=== PATIENT | male | born 1960 | race Caucasian/White ===

== ENCOUNTER → 2017-10-04 | Outpatient (CLI) | payer MEDICARE ==
[2017-10-04 08:27] LABS: Basophils # (A) 0.1 k/uL (0-0.2); Basophils % (A) 1 %; Eosinophils # (A) 0.4 k/uL (0-0.7); Eosinophils % (A) 5 %; HCT 48.6 % (39.0-53.0); HGB 15.5 gm/dL (13.0-17.5); Lymphocytes # (A) 2.9 k/uL (1.0-4.8); Lymphocytes % (A) 41 %; MCH 33.1 pg (25.0-35.0); MCHC 31.9 g/dL (31.0-37.0); MCV 103.8 fL (80.0-100.0); Macrocytosis Slight; Mean Platelet Volume 7.7; Monocytes # (A) 0.4 k/uL (0-1.0); Monocytes % (A) 6 %; Neutrophils # (A) 3.2 k/uL (1.3-7.7); Neutrophils % (A) 45 %; Platelet Count 228 k/uL (150-450); RBC 4.68 m/uL (4.30-5.90); RDW 12.5 % (11.5-15.5); WBC 7.2 k/uL (3.8-10.6)
[2017-10-04 10:09] LABS: ALT 73 U/L (21-72); AST 34 U/L (17-59); Albumin 3.8 g/dL (3.5-5.0); Alkaline Phosphatase 52 U/L (38-126); Anion Gap 9 mmol/L; Blood Urea Nitrogen 15 mg/dL (9-20); Calcium 9.6 mg/dL (8.4-10.2); Carbon Dioxide 28 mmol/L (22-30); Chloride 108 mmol/L (98-107); Glucose 101 mg/dL (74-99); Lithium 0.8 mmol/L; Potassium 4.8 mmol/L (3.5-5.1); Sodium 145 mmol/L (137-145); Total Bilirubin 0.2 mg/dL (0.2-1.3); Total Protein 6.5 g/dL (6.3-8.2)
[2017-10-04 10:14] LABS: Valproic Acid (Depakene) 47.3 ug/mL
[2017-10-04 10:24] LABS: T4, Free (Free Thyroxine) 0.66 ng/dL (0.78-2.19)
== END | disposition home or self-care (01) ==
LOC: LABWHC1 07:47
PROVIDERS: ATTEND Psychiatry & Neurology Psychiatry
DX: F31.9 Bipolar disorder, unspecified (principal)
CPT/HCPCS: 36415; 80053; 80164; 80178; 84439; 84443; 84479; 85025

== ENCOUNTER → 2017-11-15 | Outpatient (CLI) | payer MEDICARE | END | disposition home or self-care (01) | LOC: LABWHC1 08:48 | PROVIDERS: ATTEND Psychiatry & Neurology Psychiatry | DX: F31.9 Bipolar disorder, unspecified (principal) | CPT/HCPCS: 36415; 80164 ==

== ENCOUNTER → 2018-02-07 | Outpatient (CLI) | payer MEDICARE | END | disposition home or self-care (01) | LOC: LABWHC1 08:55 | PROVIDERS: ATTEND Psychiatry & Neurology Psychiatry | DX: F31.9 Bipolar disorder, unspecified (principal) | CPT/HCPCS: 36415; 80164 ==

== ENCOUNTER → 2018-02-08 | Outpatient (CLI) | payer MEDICARE | END | disposition home or self-care (01) | LOC: LABWHC1 08:39 | PROVIDERS: ATTEND Psychiatry & Neurology Psychiatry | DX: F31.70 Bipolar disorder, currently in remission, most recent episode unspecified (principal) | CPT/HCPCS: 36415; 80178 ==

== ENCOUNTER → 2019-04-16 | Outpatient (CLI) | payer MEDICARE ==
[2019-04-17 01:16] LABS: Valproic Acid (Depakene) 60.9 ug/mL (50.0-100.0)
[2019-04-17 02:27] LABS: Lithium 0.6 mmol/L (1.0-1.2)
== END | disposition home or self-care (01) ==
LOC: LABWHC1 08:24
PROVIDERS: ATTEND Specialist
DX: F31.70 Bipolar disorder, currently in remission, most recent episode unspecified (principal)
CPT/HCPCS: 36415; 80164; 80178

== ENCOUNTER → 2019-07-24 | Outpatient (CLI) | payer MEDICARE ==
[2019-07-24 15:21] LABS: Basophils # (A) 0.1 k/uL (0-0.2); Basophils % (A) 1 %; Eosinophils # (A) 0.2 k/uL (0-0.7); Eosinophils % (A) 4 %; HGB 15.4 gm/dL (13.0-17.5); Lymphocytes # (A) 1.8 k/uL (1.0-4.8); Lymphocytes % (A) 36 %; MCH 34.2 pg (25.0-35.0); MCHC 32.8 g/dL (31.0-37.0); MCV 104.3 fL (80.0-100.0); Macrocytosis Slight; Mean Platelet Volume 6.5; Monocytes # (A) 0.3 k/uL (0-1.0); Monocytes % (A) 6 %; Neutrophils # (A) 2.6 k/uL (1.3-7.7); Neutrophils % (A) 50 %; Platelet Count 192 k/uL (150-450); RDW 11.6 % (11.5-15.5); WBC 5.2 k/uL (3.8-10.6)
[2019-07-24 15:46] LABS: Appearance,Urine Clear (Clear); Bilirubin,Urine Negative (Negative); Blood,Urine Negative (Negative); Color,Urine Yellow; Glucose,Urine (UA) Negative (Negative); Ketones,Urine Negative (Negative); Leukocyte Esterase,Urine Negative (Negative); Nitrite,Urine Negative (Negative); PH, Urine 6.5 (5.0-8.0); Protein,Urine Negative (Negative); Specific Gravity,Urine 1.017 (1.001-1.035); Urobilinogen,Urine <2.0 mg/dL (<2.0)
[2019-07-24 21:00] LABS: African American GFR (CKD) 108.7 (60.0-200.0); Albumin 4.1 g/dL (3.80-4.90); Albumin/Globulin Ratio 2.41 (1.60-3.17); Anion Gap 6.3 mmol/L (4.00-12.00); BUN/Creat Ratio 18.89 Ratio (12.00-20.00); Calcium 9.3 mg/dL (8.7-10.3); Carbon Dioxide 24.7 mmol/L (21.6-31.8); Chol/HDL Ratio 3.29; Globulin 1.7 g/dL (1.6-3.3); Lithium 0.4 mmol/L (0.5-1.2); Potassium 5.3 mmol/L (3.5-5.5); T4, Free (Free Thyroxine) 0.9 ng/dL (0.80-1.80); Total Bilirubin 0.5 mg/dL (0.3-1.2); Total Protein 5.8 g/dL (6.2-8.2)
== END ==
LOC: LABWHC1 14:14
PROVIDERS: ATTEND Psychiatry & Neurology Psychiatry
DX: F31.70 Bipolar disorder, currently in remission, most recent episode unspecified (principal)
CPT/HCPCS: 36415; 80053; 80061; 80164; 80178; 81003; 82306; 84439; 84443; 85025

== ENCOUNTER → 2019-12-05 | Outpatient (CLI) | payer MEDICARE ==
[2019-12-05 13:42] LABS: Basophils % (A) 0 %; Eosinophils # (A) 0.2 k/uL (0-0.7); Eosinophils % (A) 4 %; HCT 45.5 % (39.0-53.0); HGB 14.9 gm/dL (13.0-17.5); Lymphocytes # (A) 2.1 k/uL (1.0-4.8); Lymphocytes % (A) 32 %; MCH 34.1 pg (25.0-35.0); MCHC 32.8 g/dL (31.0-37.0); MCV 104.2 fL (80.0-100.0); Macrocytosis Slight; Mean Platelet Volume 7.6; Monocytes # (A) 0.4 k/uL (0-1.0); Monocytes % (A) 6 %; Neutrophils # (A) 3.6 k/uL (1.3-7.7); Neutrophils % (A) 56 %; Platelet Count 234 k/uL (150-450); RBC 4.37 m/uL (4.30-5.90); RDW 11.9 % (11.5-15.5); WBC 6.5 k/uL (3.8-10.6)
[2019-12-05 19:21] LABS: T4, Free (Free Thyroxine) 1.2 ng/dL (0.80-1.80)
[2019-12-05 20:14] LABS: Valproic Acid (Depakene) 103.3 ug/mL (50.0-100.0)
[2019-12-05 20:37] LABS: African American GFR (CKD) 85.3 (60.0-200.0); Albumin/Globulin Ratio 2.11 (1.60-3.17); Anion Gap 6.7 mmol/L (4.00-12.00); BUN/Creat Ratio 12.73 Ratio (12.00-20.00); Bilirubin, Conjugated 0.2 mg/dL (0.20-0.40); Bilirubin,Unconjugated 0.2 mg/dL; Calcium 9.3 mg/dL (8.7-10.3); Carbon Dioxide 25.3 mmol/L (21.6-31.8); Globulin 1.9 g/dL (1.6-3.3); Lithium 0.7 mmol/L (0.5-1.2); Non-African American GFR(CKD) 73.6 (60.0-200.0); Potassium 5.1 mmol/L (3.5-5.5); Total Bilirubin 0.4 mg/dL (0.3-1.2); Total Protein 5.9 g/dL (6.2-8.2)
== END | disposition home or self-care (01) ==
LOC: LABWHC1 12:52
PROVIDERS: ATTEND Clinical Nurse Specialist Psychiatric/Mental Health
DX: F31.70 Bipolar disorder, currently in remission, most recent episode unspecified (principal)
CPT/HCPCS: 36415; 80053; 80164; 80178; 82150; 82248; 83690; 84439; 84443; 84479; 85025

== ENCOUNTER → 2021-08-11 | Outpatient (CLI) | payer MEDICARE ==
[2021-08-12 00:14] LABS: Valproic Acid (Depakene) 73.3 ug/mL (50.0-100.0)
[2021-08-12 00:20] LABS: Lithium 0.9 mmol/L (0.50-1.20)
== END | disposition home or self-care (01) ==
LOC: LABWHC1 15:10
PROVIDERS: ATTEND Physician Assistant
DX: F31.70 Bipolar disorder, currently in remission, most recent episode unspecified (principal)
CPT/HCPCS: 36415; 80164; 80178

== ENCOUNTER → 2022-06-11 | Outpatient (CLI) | payer MEDICARE ==
--- NOTE | 2022-06-11 18:13 | XR ---
EXAMINATION TYPE: XR chest 2V DATE OF EXAM: 06/11/2022 COMPARISON: None HISTORY: 62-year-old male R05.8, there is a slight cough TECHNIQUE: Frontal and lateral views FINDINGS: The cardiomediastinal silhouette, aorta, and pulmonary vasculature are within normal limits. Lungs an d pleural spaces are clear. IMPRESSION: No acute cardiopulmonary process.
== END | disposition home or self-care (01) ==
LOC: RADXRMAIN 15:26
PROVIDERS: ATTEND Family Medicine
DX: R05.8 Other specified cough (principal)
CPT/HCPCS: 71046

== ENCOUNTER 2023-11-10 09:58 | Day surgery (SDC) | payer MEDICARE ==
--- NOTE | 2023-11-10 07:38 | P.GSHP ---
History of Present Illness H&P Date: 11/10/23 CHIEF COMPLAINT: GI bleed HISTORY OF PRESENT ILLNESS: The patient is a 63-year-old male who presents with GI bleed. Upper and lower endoscopy were offered for further evaluation and management. PAST MEDICAL HISTORY: Please see list. PAST SURGICAL HISTORY: Please see list. MEDICATIONS: Please see list. ALLERGIES: Please see list. SOCIAL HISTORY: No illicit drug use FAMILY HISTORY: No reports of Crohn disease or ulcerative colitis. REVIEW OF ORGAN SYSTEMS: CONSTITUTIONAL: No reports of fevers or chills. GI: Denies any blood in stools or constipation. PHYSICAL EXAM: VITAL SIGNS: Stable GENERAL: Well-developed pleasant in no acute distress. HEENT: No scleral icterus. Extraocular movements grossly intact. Moist buccal mucosa. NECK: Supple without lymphadenopathy. CHEST: Unlabored respirations. Equal bilateral excursions. CARDIOVASCULAR: Regular rate and rhythm. Distal 2+ pulses. ABDOMEN: Soft, nondistended. MUSCULOSKELETAL: No clubbing, cyanosis, or edema. ASSESSMENT: 1. GI bleed GI bleed PLAN: 1. Recommend proceeding with an upper and lower endoscopy Past Medical History Past Medical History: Thyroid Disorder Additional Past Medical History / Comment(s): hypothyroidism, kinetic tremors - arms History of Any Multi-Drug Resistant Organisms: None Reported Additional Past Surgical History / Comment(s): colonoscopy, pilonidal cyst remov al Past Anesthesia/Blood Transfusion Reactions: No Reported Reaction Smoking Status: Current some day smoker Medications and Allergies Home Medications Medication Instructions Recorded Confirmed Type Atorvastatin [Lipitor] 20 mg PO HS 11/08/23 11/08/23 History Citalopram Hydrobromide 20 mg PO QAM 11/08/23 11/08/23 History [Citalopram HBr] Divalproex ER [Depakote ER] 1,250 mg PO HS 11/08/23 11/08/23 History Levothyroxine Sodium 150 mcg PO QAM 11/08/23 11/08/23 History [place] Carbonate [Lithobid] 300 mg PO BID 11/08/23 11/08/23 History Multivitamin [Multivitamins Adult 1 each PO DAILY 11/08/23 11/08/23 History Gummies] QUEtiapine [SEROquel] 50 mg PO HS 11/08/23 11/08/23 History Allergies Allergy/AdvReac Type Severity Reaction Status Date / Time Penicillins Allergy Rash/Hives Verified 11/08/23 11:08
[~2023-11-10 09:58] MED LIST: LIDOCAINE 1% (10MG/ML) FOR IV START INTRADERMA PRN
[2023-11-10] MEDS: LACTATED RINGERS 1,000 ML IV SCH (10:27)
[2023-11-10 10:30] VITALS: RESP 16; TEMP 97.1
[2023-11-10] MEDS ORDERED: PROPOFOL 10 MG/ML 20 ML VIAL IV ONE (10:56)
[2023-11-10] MEDS ORDERED: LIDOCAINE 2% (PF) 20 MG/ML 5 ML VIAL ONE (10:56)
--- NOTE | 2023-11-10 11:48 | P.PCN ---
Date of Procedure: 11/10/23 Description of Procedure: PREOPERATIVE DIAGNOSIS: Colonoscopy screening POSTOPERATIVE DIAGNOSIS: Colonoscopy screening. Diverticulosis, scattered. OPERATION: Colonoscopy to the cecum, ileocecal valve and appendiceal orifice. SURGEON: Montse Bowling MD. ANESTHESIA: MAC. INDICATIONS: The patient is a 63-year-old female who presents for colonoscopy screening. Last colonoscopy over 5 years ago. Benefits and risks were described and informed consent was obtained. DESCRIPTION OF PROCEDURE: The patient had undergone Sutab prep. The patient had been brought into the operating room and laid in the left lateral decubitus position. After adequate intravenous sedation, the rectum was examined with 2% lidocaine jelly. Prostate unremarkable. External hemorrhoids were encountered. The rectal tone was within normal limits. No lesions were palpated in the rectal vault. An Olympus colonoscope was advanced until the cecum, ileocecal valve and appendiceal orifice were clearly viewed. The prep was good. Scattered diverticulosis was encountered. No colonic polyps were found. No evidence of focal colitis was found. Retroflexion of the scope demonstrated grade 2 internal hemorrhoids without active bleeding or inflammation. The colon was desufflated. The patient had tolerated the procedure well. Withdrawal time was over 6 minutes. FINDINGS: Aronchick preparation quality scale 1= (1-5) Internal hemorrhoids, grade 2 External prolapsed hemorrhoids, grade 2. No arteriovenous malformations. No adenomatous polyps. No focal colitis. RECOMMENDATIONS: Lower endoscopy in 5 years, 2028
--- NOTE | 2023-11-10 11:50 | P.PCN ---
Date of Procedure: 11/10/23 Description of Procedure: PREOPERATIVE DIAGNOSIS: Gastrointestinal bleeding History of gastric ulcer POSTOPERATIVE DIAGNOSIS: Chronic gastric ulcer Gastritis of bleeding OPERATION: Esophagogastroduodenoscopy with biopsies along esophagus, antrum and duodenum SURGEON: Montse Bowling MD ANESTHESIA: MAC. INDICATIONS: The patient is a 63-year-old female who presents with reflux disease. Benefits and risks of the procedure were described. Informed consent was obtained. DESCRIPTION: The patient was brought into the endoscopy suite and laid in the left lateral decubitus position. An Olympus gastroscope was passed along the posterior oropharynx down to the distal esophagus where the squamocolumnar junction was encountered at 40 cm from the incisors. The stomach was entered and no bile reflux was found. Additional findings are listed below. Biopsies with cold forceps were obtained of the antrum. The first through third portion of the duodenum was examined. Retroflexion of the scope confirmed Hill grade 2 lower esophageal valve. The squamocolumnar junction demonstrated LA grade B erosive esophagitis. The stomach was desufflated. The patient tolerated the procedure well. FINDINGS: Squamocolumnar junction 40 cm from the incisors. Diaphragmatic hiatus at 40 cm. Hill grade 4 lower esophageal valve. LA grade B erosive esophagitis. Biopsies obtained Biopsies obtained of the duodenum. Chronic gastritis with bleeding and with biopsies obtained. Chronic gastric ulcer, 5 mm no bleeding RECOMMENDATIONS: Omeprazole 40 mg daily for 2 weeks Plan - Discharge Summary Discharge Rx Participant: Yes New Discharge Prescriptions: New RX: Omeprazole [PriLOSEC] 40 mg PO DAILY #14 cap Continue RX: Multivitamin [Multivitamins Adult Gummies] 1 each PO DAILY RX: [place] Carbonate [Lithobid] 300 mg PO BID RX: Citalopram Hydrobromide [Citalopram HBr] 20 mg PO QAM RX: Divalproex ER [Depakote ER] 1,250 mg PO HS RX: Acetaminophen [Tylenol] 650 mg PO RX: Levothyroxine Sodium 150 mcg PO QAM RX: QUEtiapine [SEROquel] 50 mg PO HS RX: Atorvastatin [Lipitor] 20 mg PO HS Discharge Medication List RX: Atorvastatin [Lipitor] 20 mg PO HS 11/08/23 [History] RX: Citalopram Hydrobromide [Citalopram HBr] 20 mg PO QAM 11/08/23 [History] RX: Divalproex ER [Depakote ER] 1,250 mg PO HS 11/08/23 [History] RX: Levothyroxine Sodium 150 mcg PO QAM 11/08/23 [History] RX: [place] Carbonate [Lithobid] 300 mg PO BID 11/08/23 [History] RX: Multivitamin [Multivitamins Adult Gummies] 1 each PO DAILY 11/08/23 [History] RX: QUEtiapine [SEROquel] 50 mg PO HS 11/08/23 [History] RX: Acetaminophen [Tylenol] 650 mg PO 11/10/23 [History] RX: Omeprazole [PriLOSEC] 40 mg PO DAILY #14 cap 11/10/23 [Rx] Follow up Appointment(s)/Referral(s): Montse Bowling MD [STAFF PHYSICIAN] - 12/20/23 4:45 pm Patient Instructions/Handouts: Peptic Ulcer (GEN), Diverticulosis (DC), Diverticulosis Diet (GEN) Activity/Diet/Wound Care/Special Instructions: Repeat colonoscopy in 5 years, 2028 Discharge Disposition: HOME SELF-CARE
[2023-11-10 12:02] VITALS: BP 127/63; PULSE 72
== END 2023-11-10 12:25 | disposition home or self-care (01) ==
LOC: ORWHC2ENDO 09:58
PROVIDERS: ATTEND Surgery Plastic and Reconstructive Surgery
DX: Z12.11 Encounter for screening for malignant neoplasm of colon (principal); K29.50 Unspecified chronic gastritis without bleeding; K21.00 Gastro-esophageal reflux disease with esophagitis, without bleeding; K25.4 Chronic or unspecified gastric ulcer with hemorrhage; K21.9 Gastro-esophageal reflux disease without esophagitis; K57.30 Diverticulosis of large intestine without perforation or abscess without bleeding; E03.9 Hypothyroidism, unspecified; F17.200 Nicotine dependence, unspecified, uncomplicated; Z79.890 Hormone replacement therapy; Z79.899 Other long term (current) drug therapy; Z88.0 Allergy status to penicillin
CPT/HCPCS: 88305; 45378; 43239; J2704; J2001

== ENCOUNTER 2024-06-26 13:06 | Emergency (ER) | payer MEDICARE ==
[2024-06-26 13:13] VITALS: RESP 18
--- NOTE | 2024-06-26 13:29 | ED ---
Lower Extremity Injury HPI - General Chief Complaint: Extremity Injury, Lower Stated Complaint: L Foot Pain Time Seen by Provider: 06/26/24 13:21 Source: patient, RN notes reviewed Mode of arrival: ambulatory Limitations: no limitations - History of Present Illness Initial Comments: This is a 64-year-old male presents emergency department chief complaint of left foot pain. Patient states that his left foot has been painful over the past approximately 36 hours. He noticed that there was redness and swelling to the great toe at the first knuckle. Patient denies any known traumas or injuries to the left foot. He endorses pain with ambulation. He denies fevers, chills, nausea, vomiting, weakness. Denies history of gout. - Related Data Home Medications Medication Instructions Recorded Confirmed Atorvastatin [Lipitor] 20 mg PO HS 11/08/23 11/10/23 Citalopram Hydrobromide 20 mg PO QAM 11/08/23 11/10/23 [Citalopram HBr] Divalproex ER [Depakote ER] 1,250 mg PO HS 11/08/23 11/10/23 Levothyroxine Sodium 150 mcg PO QAM 11/08/23 11/10/23 [place] Carbonate [Lithobid] 300 mg PO BID 11/08/23 11/10/23 Multivitamin [Multivitamins Adult 1 each PO DAILY 11/08/23 11/08/23 Gummies] QUEtiapine [SEROquel] 50 mg PO HS 11/08/23 11/10/23 Acetaminophen [Tylenol] 650 mg PO 11/10/23 Previous Rx's Medication Instructions Recorded Omeprazole [PriLOSEC] 40 mg PO DAILY #14 cap 11/10/23 Cephalexin [Keflex] 500 mg PO Q6HR #40 cap 06/26/24 Sulfamethox-Tmp 800-160Mg [Bactrim 1 each PO Q12HR #20 tab 06/26/24 Ds] Allergies Allergy/AdvReac Type Severity Reaction Status Date / Time Penicillins Allergy Rash/Hives Verified 06/26/24 13:13 Review of Systems ROS Statement: Those systems with pertinent positive or pertinent negative responses have been documented in the HPI. ROS Other: All systems not noted in ROS Statement are negative. Past Medical History Past Medical History: Thyroid Disorder Additional Past Medical History / Comment(s): hypothyroidism, kinetic tremors - arms History of Any Multi-Drug Resistant Organisms: None Reported Additional Past Surgical History / Comment(s): colonoscopy, pilonidal cyst removal Past Anesthesia/Blood Transfusion Reactions: No Reported Reaction Past Psychological History: Anxiety, Bipolar, Depression Smoking Status: Current every day smoker Past Alcohol Use History: Daily General Exam Limitations: no limitations General appearance: alert, in no apparent distress Eye exam: Present: normal appearance, PERRL, EOMI. Absent: scleral icterus, conjunctival injection, periorbital swelling ENT exam: Present: normal exam, mucous membranes moist Neck exam: Present: normal inspection. Absent: tenderness, meningismus, lymphadenopathy Respiratory exam: Present: normal lung sounds bilaterally. Absent: respiratory distress, wheezes, rales, rhonchi, stridor Cardiovascular Exam: Present: regular rate, normal rhythm, normal heart sounds. Absent: systolic murmur, diastolic murmur, rubs, gallop, clicks GI/Abdominal exam: Present: soft, normal bowel sounds. Absent: distended, tenderness, guarding, rebound, rigid Left Foot/Toe exam: Present: full ROM, tenderness, swelling, erythema. Absent: abrasion, laceration, ecchymosis, deformity, crepitus, dislocation Neurovascular tendon exam: Present: no vascular compromise. Absent: pulse deficit Gait: observed and normal Skin exam: Present: warm, dry, intact, normal color. Absent: rash Course Vital Signs 06/26/24 06/26/24 13:09 14:32 Temperature 97.6 F 99 F Pulse Rate 77 67 Respiratory 18 18 Rate Blood Pressure 155/75 121/73 O2 Sat by Pulse 98 99 Oximetry Medical Decision Making - Medical Decision Making Was pt. sent in by a medical professional or institution (, PA, TOLL TEST DESK WORKER, urgent care, hospital, or [facility]...) When possible be specific @ -No Did you speak to anyone other than the patient for history (EMS, parent, family, police, friend...)? What history was obtained from this source @ -No Did you review nursing and triage notes (agree or disagree)? Why? @ -I reviewed and agree with nursing and triage notes Were old charts reviewed (outside hosp., previous admission, EMS record, old EKG, old radiological studies, urgent care reports/EKG's, [facility] records)? Report findings @ -No old charts were reviewed Differential Diagnosis (chest pain, altered mental status, abdominal pain women, abdominal pain men, vaginal bleeding, weakness, fever, dyspnea, syncope, headache, dizziness, GI bleed, back pain, seizure, CVA, palpatations, mental health, musculoskeletal)? @ -Differential Musculoskeletal Muscular strain, contusion, ligament sprain, fracture, arthritis, septic arthritis, bursitis, cellulitis, muscle spasm, nerve compression, DVT, arterial occlusion, herpes zoster, electrolyte abnormality, tumor.... This is not meant to be in all inclusive list EKG interpreted by me (3pts min.). @ -None X-rays interpreted by me (1pt min.). @ -Area of the left foot is negative for acute osseous abnormality CT interpreted by me (1pt min.). @ -None done U/S interpreted by me (1pt. min.). @ -None done What testing was considered but not performed or refused? (CT, X-rays, U/S, labs )? Why? @ -Laboratory studies were considered but deferred at this time. There is minimal clinical concern for systemic infection as there is a localized area of erythema and mild soft tissue swelling. Patient is not expressing symptoms of fevers, chills, nausea, vomiting. Additionally he is afebrile nontachycardic. Patient is in agreement with deferring laboratory studies at this time as well. What meds were considered but not given or refused? Why? @ -None Did you discuss the management of the patient with other professionals (professionals i.e. , PA, TOLL TEST DESK WORKER, lab, RT, psych nurse, social media campaign manager, territory business manager, teacher, chief compliance officer, caser up)? Give summary @ -No Was smoking cessation discussed for >3mins.? @ -No Was critical care preformed (if so, how long)? @ -No Were there social determinants of health that impacted care today? How? (Homelessness, low income, unemployed, alcoholism, drug addiction, transportation, low edu. Level, literacy, decrease access to med. care, care home, rehab)? @ -No Was there de-escalation of care discussed even if they declined (Discuss DNR or withdrawal of care, Hospice)? DNR status @ -No What co-morbidities impacted this encounter? (DM, HTN, Smoking, COPD, CAD, Cancer, CVA, ARF, Chemo, Hep., AIDS, mental health diagnosis, sleep apnea, morbid obesity)? @ -None Was patient admitted / discharged? Hospital course, mention meds given and route, prescriptions, significant lab abnormalities, going to OR and other pertinent info. @ -Discharged. 64-year-old male with left foot pain. On examination space noted to have mild soft tissue edema of the left medial distal foot near the first digit with no signs of abscess or open skin. Area is slightly warm to the touch with mild erythema. Patient is neurovascularly intact and able to ambulate. X-rays negative for acute process. Symptoms align with soft tissue infection such as cellulitis and patient will be treated for this with outpatient antibiotics. All questions answered at bedside and strict return parameters iy with the patient he is verbalized understanding. Case discussed with Dr. Lopez Undiagnosed new problem with uncertain prognosis? @ -No Drug Therapy requiring intensive monitoring for toxicity (Heparin, Nitro, Insulin, Cardizem)? @ -No Were any procedures done? @ -No Diagnosis/symptom? @ -cellulitis Acute, or Chronic, or Acute on Chronic? @ -Acute Uncomplicated (without systemic symptoms) or Complicated (systemic symptoms)? @ -uncomplicated Side effects of treatment? @ -No Exacerbation, Progression, or Severe Exacerbation? @ -No Poses a threat to life or bodily function? How? (Chest pain, [place], [place], pneumonia, PE, COPD, DKA, ARF, appy, cholecystitis, CVA, Diverticulitis, Homicidal, Suicidal, threat to staff... and all critical care pts) @ -No Disposition Clinical Impression: Cellulitis Disposition: HOME SELF-CARE Condition: Good Instructions (If sedation given, give patient instructions): Cellulitis (ED) Additional Instructions: Return to the emergency department for any new or worsening symptoms. continue full course of antibiotics as prescribed. Prescriptions: Sulfamethox-Tmp 800-160Mg [Bactrim Ds] 1 each PO Q12HR #20 tab Cephalexin [Keflex] 500 mg PO Q6HR #40 cap Is patient prescribed a controlled substance at d/c from ED?: No Referrals: Raman Cortez MD [Primary Care Provider] - 1-2 days Time of Disposition: 14:22
[2024-06-26] MEDS: KETOROLAC 15 MG/ML 1 ML VIAL IM STA (13:42)
--- NOTE | 2024-06-26 13:51 | XR ---
EXAMINATION TYPE: XR foot complete LT DATE OF EXAM: 06/26/2024 CLINICAL HISTORY: pain TECHNIQUE: Frontal, lateral and oblique images of the left foot are obtained. COMPARISON: None. FINDINGS: There is no acute fracture/dislocation evident. The joint spaces appear within normal moreno its. The overlying soft tissue appears unremarkable. IMPRESSION: There is no acute fracture or dislocation. ICD 10 NO FRACTURE, INITIAL EVALUATION [facility], , 06/26/2024 1:48 PM
[2024-06-26 14:33] VITALS: BP 121/73; PULSE 67; TEMP 99
== END 2024-06-26 14:33 | disposition home or self-care (01) ==
LOC: EC 13:06
DX: M79.672 Pain in left foot
CPT/HCPCS: 96372; 99283